=== PATIENT | male | born 1980 | race Caucasian/White ===

== ENCOUNTER 2024-11-26 15:11 | Inpatient (IN) | payer MEDICAID ==
[~2024-11-26] VITALS: Ht 177.8 cm; Wt 86.3 kg
[2024-11-26] MEDS: BLOOD SUGAR DIAGNOSTIC 1 EACH STRIP IN SCH
[2024-11-26] MEDS: ENOXAPARIN SODIUM 40 MG/0.4 ML DISP.SYRIN SQ SCH
[2024-11-26 17:46] LABS: BASOPHILS % (AUTO) 0.3 % (0.0-2.0); EOSINOPHILS % (AUTO) 0.2 % (0.0-6.0); HEMATOCRIT 40 % (39-51); HEMOGLOBIN 13.7 g/dL (13.5-17.5); LYMPHOCYTES # (AUTO) 1.7 K/uL (0.8-4.8); LYMPHOCYTES % (AUTO) 9.9 % (20.0-44.0); MEAN CORPUSCULAR HEMOGLOBIN 30 PG (26.0-33.0); MEAN CORPUSCULAR HGB CONC 35 g/dl (31.0-36.0); MEAN CORPUSCULAR VOLUME 87 fL (80-96); MONOCYTES # (AUTO) 1.3 K/uL (0.1-1.30); MONOCYTES % (AUTO) 7.4 % (2.0-12.0); NEUTROPHILS # (AUTO) 14.5 K/uL (1.8-8.9); NEUTROPHILS % (AUTO) 82.2 % (43.0-81.0); PLATELET COUNT (AUTO) 162 K/uL (150-450); RED BLOOD CELL COUNT(AUTO) 4.57 MIL/uL (4.5-6.0); RED CELL DISTRIBUTION WIDTH 12.3 % (11.5-15.0); WHITE BLOOD COUNT (AUTO) 17.6 K/uL (4.3-11.0)
[2024-11-26] MEDS: IV NS 0.9% 1,000 ML BAG IV ONE (17:50)
[2024-11-26 17:56] LABS: CALCIUM, SERUM 9.3 mg/dL (8.5-10.1); CREATININE 0.9 mg/dL (0.6-1.3); POTASSIUM 4.4 mmol/L (3.5-5.1)
[2024-11-26 17:59] LABS: INR 1.14 (0.91-1.10); PARTIAL THROMBOPLASTIN TIME 28.8 SEC (24.3-34.3)
[2024-11-26 18:03] LABS: ALBUMIN 2.9 g/dL (3.4-5.0); BILIRUBIN,DIRECT 0.3 mg/dL (0.0-0.2); BILIRUBIN,TOTAL 0.9 mg/dL (0.2-1.0); TOTAL PROTEIN, SERUM 7.8 g/dL (6.4-8.2)
[2024-11-26 18:04] LABS: LACTIC ACID 1.4 mmol/L (0.4-2.0)
[2024-11-26] MEDS: CEFEPIME 1 GM in IV D5W 50 ML IV ONE (18:42)
[2024-11-26 18:48] LABS: APPEARANCE,URINE CLEAR (CLEAR); BILIRUBIN,URINE NEGATIVE (NEGATIVE); BLOOD, URINE TRACE-INTA Ery/uL (NEGATIVE); COLOR,URINE YELLOW (YELLOW); KETONES,URINE 1+ mg/dL (NEGATIVE); LEUKOCYTE ESTERASE ,URINE NEGATIVE (NEGATIVE); NITRITE, URINE NEGATIVE (NEGATIVE); PROTEIN,URINE NEGATIVE (NEGATIVE); UGLUCOSE 3+ mg/dL (NEGATIVE); UROBILINOGEN,URINE 0.2 EU/dL (0.2)
[2024-11-26 18:59] LABS: ADD URINE CULTURE NO; BACTERIA,URINE Rare /HPF (None Seen); SQUAMOUS EPITHELIAL CELL,UR None Seen /HPF (None Seen)
[2024-11-26 19:00] LABS: HYALINE CASTS, URINE Few /LPF (None Seen)
[2024-11-26] MEDS: VANCOMYCIN 1 GM in IV D5W 250 ML IV ONE (19:00)
[2024-11-26] MEDS ORDERED: CT SWABBABLE VALVE TRANS SET 1 EA INFUS.SET MC ONE (19:13)
[2024-11-26] MEDS ORDERED: IV NS 0.9% 250 ML IV ONE (19:13)
[2024-11-26] MEDS ORDERED: IOHEXOL-300 100 ML VIAL IV ONE (19:13)
[2024-11-26] MEDS: LIDOCAINE 1%-EPI 1:100,000 20 ML VIAL TP ONE (21:30)
[2024-11-26] MEDS ORDERED: CLINDAMYCIN 900 MG/6 ML VIAL ONE (22:25)
[2024-11-26] MEDS: CLINDAMYCIN 900 MG in IV D5W 100 ML IV ONE (22:48)
[2024-11-26] MEDS ORDERED: DEXTROSE 50%-WATER 50 ML DISP.SYRIN IV PRN (23:00)
[2024-11-26] MEDS ORDERED: MAGNESIUM HYDROXIDE 30 ML UDC PO PRN (23:00)
[2024-11-26] MEDS ORDERED: Z GUARD REMEDY 4 OZ OINT TP PRN (23:00)
[2024-11-26] MEDS ORDERED: ONDANSETRON HCL/PF 4 MG/2 ML VIAL IVP PRN (23:00)
[2024-11-26] MEDS ORDERED: MAG HYDROX/AL HYDROX/SIMETH 30 ML UDC PO PRN (23:00)
[2024-11-27] MEDS ORDERED: ENOXAPARIN SODIUM 40 MG/0.4 ML DISP.SYRIN SQ ONE (00:07)
[2024-11-27] MEDS ORDERED: INSULIN REGULAR, HUMAN 100 UNIT/ML 10 ML VIAL ONE (00:07)
[2024-11-27] MEDS: INSULIN REGULAR, HUMAN 100 UNIT/ML 3 ML VIAL SQ PRN (00:15)
[2024-11-27] MEDS ORDERED: CLINDAMYCIN PHOSPHATE IV 600 MG/4 ML VIAL IV SCH (06:00)
[2024-11-27 07:01] LABS: BASOPHILS % (AUTO) 0.3 % (0.0-2.0); EOSINOPHILS # (AUTO) 0.1 K/uL (0.0-0.7); EOSINOPHILS % (AUTO) 0.4 % (0.0-6.0); HEMATOCRIT 36 % (39-51); HEMOGLOBIN 12.3 g/dL (13.5-17.5); LYMPHOCYTES # (AUTO) 1.6 K/uL (0.8-4.8); LYMPHOCYTES % (AUTO) 10.9 % (20.0-44.0); MEAN CORPUSCULAR HEMOGLOBIN 30 PG (26.0-33.0); MEAN CORPUSCULAR HGB CONC 34 g/dl (31.0-36.0); MEAN CORPUSCULAR VOLUME 87 fL (80-96); MONOCYTES # (AUTO) 1.1 K/uL (0.1-1.30); MONOCYTES % (AUTO) 7.7 % (2.0-12.0); NEUTROPHILS # (AUTO) 11.6 K/uL (1.8-8.9); NEUTROPHILS % (AUTO) 80.7 % (43.0-81.0); PLATELET COUNT (AUTO) 152 K/uL (150-450); RED BLOOD CELL COUNT(AUTO) 4.09 MIL/uL (4.5-6.0); RED CELL DISTRIBUTION WIDTH 12.5 % (11.5-15.0); WHITE BLOOD COUNT (AUTO) 14.4 K/uL (4.3-11.0)
[2024-11-27 07:15] LABS: ALBUMIN 2.3 g/dL (3.4-5.0); BILIRUBIN,DIRECT 0.3 mg/dL (0.0-0.2); BILIRUBIN,TOTAL 0.8 mg/dL (0.2-1.0); CALCIUM, SERUM 8.5 mg/dL (8.5-10.1); CREATININE 0.8 mg/dL (0.6-1.3); MAGNESIUM 1.9 mg/dL (1.8-2.4); PHOSPHORUS 2.8 mg/dL (2.5-4.9); POTASSIUM 3.9 mmol/L (3.5-5.1); TOTAL PROTEIN, SERUM 6.6 g/dL (6.4-8.2)
[2024-11-27 07:34] LABS: ERYTHROCYTE SEDIMENTATION RATE 35 MM/HR (0-15)
[2024-11-27] MEDS: CEFTRIAXONE 2 G in IV D5W 100 ML IV SCH (07:58)
[2024-11-27 08:00] VITALS: BP 114/78; TEMP 99; O2SAT 96
[2024-11-27] MEDS: IV NS 0.9% 1,000 ML IV PRN (08:39)
[2024-11-27] MEDS: VANCOMYCIN HCL 1.25 GM in IV D5W 250 ML IV SCH (08:40)
[2024-11-27] MEDS: PANTOPRAZOLE 40 MG TABLET.DR PO SCH (09:21)
[2024-11-27] MEDS: METRONIDAZOLE 500 MG TABLET PO SCH (09:21)
[2024-11-27 12:50] LABS: HIV-1 p24 ANTIGEN NON REACTIVE (NONREACTIVE); HIV-1/2 ANTIBODY NON REACTIVE (NONREACTIVE)
[2024-11-27 16:00] VITALS: BP 142/64; TEMP 98.6; O2SAT 96
[2024-11-27 20:00] VITALS: BP 139/70; TEMP 98.8; O2SAT 97
[2024-11-28 07:06] LABS: CALCIUM, SERUM 8.5 mg/dL (8.5-10.1); CREATININE 0.7 mg/dL (0.6-1.3)
[2024-11-28 08:00] VITALS: BP 141/73; TEMP 98.3; O2SAT 95
[2024-11-28] MEDS: VANCOMYCIN HCL 1.25 GM in IV D5W 250 ML IV SCH ×2 (10:24→19:05)
[2024-11-28] MEDS: LIDOCAINE 2%-EPI 1:100,000 30 ML VIAL TP ONE (13:28)
[2024-11-28 16:15] VITALS: BP 137/67; TEMP 98.2
[2024-11-28 20:00] VITALS: BP 149/75; TEMP 99; O2SAT 98
[2024-11-29 07:41] LABS: BASOPHILS # (AUTO) 0.1 K/uL (0.0-0.2); BASOPHILS % (AUTO) 0.9 % (0.0-2.0); EOSINOPHILS # (AUTO) 0.1 K/uL (0.0-0.7); EOSINOPHILS % (AUTO) 1.5 % (0.0-6.0); HEMATOCRIT 36 % (39-51); HEMOGLOBIN 12.6 g/dL (13.5-17.5); LYMPHOCYTES # (AUTO) 0.7 K/uL (0.8-4.8); LYMPHOCYTES % (AUTO) 7.3 % (20.0-44.0); MEAN CORPUSCULAR HEMOGLOBIN 31 PG (26.0-33.0); MEAN CORPUSCULAR HGB CONC 36 g/dl (31.0-36.0); MEAN CORPUSCULAR VOLUME 88 fL (80-96); MONOCYTES # (AUTO) 0.7 K/uL (0.1-1.30); MONOCYTES % (AUTO) 7.3 % (2.0-12.0); NEUTROPHILS # (AUTO) 8.1 K/uL (1.8-8.9); PLATELET COUNT (AUTO) 195 K/uL (150-450); RED BLOOD CELL COUNT(AUTO) 4.04 MIL/uL (4.5-6.0); RED CELL DISTRIBUTION WIDTH 12.3 % (11.5-15.0); WHITE BLOOD COUNT (AUTO) 9.8 K/uL (4.3-11.0)
[2024-11-29 08:00] VITALS: BP 156/78; TEMP 98.1; TEMP 98.6; O2SAT 95
[2024-11-29 08:13] LABS: CALCIUM, SERUM 8.3 mg/dL (8.5-10.1); CREATININE 0.7 mg/dL (0.6-1.3); PHOSPHORUS 3.2 mg/dL (2.5-4.9); POTASSIUM 3.8 mmol/L (3.5-5.1)
[2024-11-29] MEDS: DAKINS QUARTER STRENGTH (0.125%) 480 ML BOTTLE TOP SCH (09:59)
[2024-11-29] MEDS: ACETAMINOPHEN 325 MG TABLET PO PRN (10:32)
[2024-11-29] MEDS ORDERED: METR500T PO (14:17)
[2024-11-29] MEDS ORDERED: DOXY100C2 PO (14:17)
[2024-11-29] MEDS ORDERED: LEVO750T46 PO (14:17)
== END 2024-11-29 17:15 | disposition home or self-care (01) | DRG 364 ==
LOC: ER 15:11 → TRANSITION 11-27 00:09 → MED 11-27 05:56
PROVIDERS: ADMIT Nurse Practitioner Family; ATTEND Student in an Organized Health Care Education/Training Program
PROC: 0H9JXZZ Drainage of Left Upper Leg Skin, External Approach (ICD-10-PCS; principal; 2024-11-27)
PROC: 0J9M0ZZ Drainage of Left Upper Leg Subcutaneous Tissue and Fascia, Open Approach (ICD-10-PCS; 2024-11-28)
DX: L03.314 Cellulitis of groin (principal); E44.0 Moderate protein-calorie malnutrition; E87.1 Hypo-osmolality and hyponatremia; E88.09 Other disorders of plasma-protein metabolism, not elsewhere classified; L02.416 Cutaneous abscess of left lower limb; E11.65 Type 2 diabetes mellitus with hyperglycemia; D72.829 Elevated white blood cell count, unspecified; Z20.822 Contact with and (suspected) exposure to COVID-19; L02.214 Cutaneous abscess of groin; L03.116 Cellulitis of left lower limb; Z88.0 Allergy status to penicillin; Z68.27 Body mass index [BMI] 27.0-27.9, adult
CPT/HCPCS: 36415; 71045-TC; 73700-TC; 80048-TC; 80076-TC; 80202-TC; 81001; 82962-TC; 83605-TC; 83735-TC; 84100-TC; 85025-TC; 85652-TC; 85730-TC; 86803; 87040-TC; 87081-TC; 87086-TC; 87806; A4223; A6253; A6403; G0378; J0692; J0696; J1650; J1815; J3370; J3490; J7030; J7050; J7060; Q9967

== ENCOUNTER 2024-12-01 14:00 | Emergency (ER) | payer MEDICAID ==
[~2024-12-01] VITALS: Ht 177.8 cm; Wt 86.2 kg
[~2024-12-01 14:00] MED LIST: DOXY100C2 PO; LEVO750T46 PO; METR500T PO
[2024-12-01 14:16] VITALS: TEMP 99.4
[2024-12-01] MEDS: FAMOTIDINE (20 MG) 20 MG TABLET PO ONE (15:48)
[2024-12-01] MEDS: MAG HYDROX/AL HYDROX/SIMETH 30 ML UDC PO ONE (15:49)
[2024-12-01] MEDS: LIDOCAINE VISCOUS 2% UD 15 ML UDC MM ONE (15:49)
[2024-12-01 15:52] LABS: BASOPHILS % (AUTO) 0.4 % (0.0-2.0); EOSINOPHILS % (AUTO) 0.7 % (0.0-6.0); HEMATOCRIT 40 % (39-51); HEMOGLOBIN 13.7 g/dL (13.5-17.5); LYMPHOCYTES # (AUTO) 0.9 K/uL (0.8-4.8); MEAN CORPUSCULAR HEMOGLOBIN 30 PG (26.0-33.0); MEAN CORPUSCULAR HGB CONC 34 g/dl (31.0-36.0); MEAN CORPUSCULAR VOLUME 88 fL (80-96); MONOCYTES # (AUTO) 0.8 K/uL (0.1-1.30); MONOCYTES % (AUTO) 11.1 % (2.0-12.0); NEUTROPHILS # (AUTO) 5.5 K/uL (1.8-8.9); NEUTROPHILS % (AUTO) 75.8 % (43.0-81.0); PLATELET COUNT (AUTO) 214 K/uL (150-450); RED BLOOD CELL COUNT(AUTO) 4.55 MIL/uL (4.5-6.0); RED CELL DISTRIBUTION WIDTH 12.6 % (11.5-15.0); WHITE BLOOD COUNT (AUTO) 7.2 K/uL (4.3-11.0)
[2024-12-01 16:04] LABS: CALCIUM, SERUM 8.5 mg/dL (8.5-10.1); CARBON DIOXIDE 31 mmol/L (21-32); CHLORIDE 99 mmol/L (98-107); CREATININE 0.8 mg/dL (0.6-1.3); GLUCOSE 245 mg/dL (74-106); POTASSIUM 3.9 mmol/L (3.5-5.1); SODIUM SERUM 135 mmol/L (136-145); UREA NITROGEN, BLOOD 10 mg/dL (7-18)
[2024-12-01 16:45] VITALS: BP 120/70; O2SAT 98
== END 2024-12-01 16:43 | disposition home or self-care (01) ==
LOC: ER 15:37
DX: R07.9 Chest pain, unspecified (principal); R50.9 Fever, unspecified; L02.214 Cutaneous abscess of groin; Z88.0 Allergy status to penicillin
CPT/HCPCS: 36415; 80048-TC; 84484-TC; 85025-TC